=== PATIENT | female | born 1975 | race Caucasian/White ===

== ENCOUNTER 2024-06-26 10:37 | Emergency (ER) | payer OTHER, SELFPAY ==
[2024-06-26 10:50] VITALS: BP 145/92; PULSE 69; RESP 16; TEMP 36.9; O2SAT 99
--- NOTE | 2024-06-26 11:01 | EDNOTE_ITS ---
ED General RME/HPI General Chief complaint: General Adult/Misc Complain Stated complaint: R) EYE SWELLING GOING INTO FACE W/ TONGUE SWELLING Time Seen by Provider: 06/26/24 10:41 Source: patient Arrival date/time: 06/26/24 10:37 48-year-old female with no known medical history presents to the emergency room with a chief complaint of right sided facial swelling that began near the lower eye and has extended near her right lip x 1 day Mode of arrival: ambulatory Limitations: no limitations Related Data Previous Rx's ?Medication ?Instructions ?Recorded amoxicillin 875 mg-potassium 1 tab PO BID 7 days #14 t abs 06/26/24 clavulanate 125 mg tablet Allergies Allergy/AdvReac Type Severity Reaction Status Date / Time gluten Allergy Severe Headache Verified 06/26/24 10:43 Review of Systems Review of Systems Systems Reviewed: All systems reviewed, normal except as documented Constitutional Constitutional: Reports system reviewed and no additional complaints, except as documented, Denies fatigue, Denies fever(s), Denies headache(s) and Denies weakness Eyes Eyes: Reports system reviewed and no additional complaints, except as documented, Denies blurry vision, Denies change in vision and Reports itchy eyes ENT Ears, Nose, Mouth, and Throat: Reports system reviewed and no additional complaints, except as documented, Denies otalgia, Denies headache(s), Reports lip swelling, Denies nasal congestion, Denies throat swelling, Denies tongue swelling and Denies vertigo Cardiovascular Cardiovascular: Reports system reviewed and no additional complaints, except as documented, Denies chest pain, Denies dyspnea and Denies dyspnea on exertion Respiratory Respiratory: Reports system reviewed and no additional complaints, except as documented, Denies chest congestion, Denies cough, Denies dyspnea, Denies dyspnea on exertion and Denies wheezing Gastrointestinal Gastrointestinal: Reports system reviewed and no additional complaints, except as documented, Denies abdominal pain, Denies cramping, Denies nausea and Denies vomiting Genitourinary Genitourinary: Reports system reviewed and no additional complaints, except as documented Musculoskeletal Musculoskeletal: Reports system reviewed and no additional complaints, except as documented and Denies back pain Integumentary/Breasts Skin/Breast: Reports system reviewed and no additional complaints, except as documented and Denies wounds Neurologic Neurologic: Reports system reviewed and no additional complaints, except as documented, Denies confusion, Denies headache(s), Denies lack of coordination, Denies vertigo and Denies weakness Psychiatric Psychiatric: Reports system reviewed and no additional complaints, except as documented, Denies anxiety, Denies confusion, Denies depression, Denies paranoia, Denies suicidal ideation and Denies tactile hallucinations Endocrine Endocrine: Reports system reviewed and no additional complaints, except as documented and Denies fatigue Hematologic/Lymphatic Hematologic/Lymphatic: Reports system reviewed and no additional complaints, except as documented and Denies lymphadenopathy Allergic/Immunologic Allergic/Immunologic: Reports system reviewed and no additional complaints, except as documented, Reports itchy eyes, Reports lip swelling, Denies seasonal rhinorrhea, Denies throat swelling, Denies tongue swelling, Denies urticaria and Denies wheezing ED Exam General Limitations: Present no limitations General appearance: Present alert and in no apparent distress Head Head exam: Present atraumatic Expanded Head Exam Head exam physical: Present other (Facial swelling) Head image: 2 1. Facial swelling and tenderness Eye Eye exam: Present normal appearance, PERRL and EOMI ENT ENT exam: Present normal exam, normal oropharynx and mucous membranes moist Neck Neck exam: Present normal inspection, full ROM and trachea midline Chest Chest inspection: Present normal inspection and symmetric chest wall rise Respiratory Respiratory exam: Present normal lung sounds bilaterally; Absent respiratory distress, wheezes, stridor, accessory muscle use or prolonged expiratory phase Cardiovascular Cardiovascular exam: Present regular rate, normal rhythm and normal heart sounds Abdominal Exam Abdominal exam: Present soft and normal bowel sounds Extremities Exam Extremities exam: Present normal inspection and full ROM Back Exam Back exam: Present normal inspection and full ROM Neurological Exam Neurological exam: Present alert, oriented X3 and CN II-XII intact Psychiatric Psychiatric exam: Present normal affect and normal mood Skin Skin exam: Present warm, dry, intact and normal color Course Quality Measures none Orders Category Date Time Status CT facial bones wo con Stat Exams 06/26/24 12:20 Completed DiphenhydrAMINE [Benadryl] Med 06/26/24 10:51 Discontinued 25 mg PO X1 ONE Famotidine [Pepcid] Med 06/26/24 10:51 Discontinued 20 mg PO X1 ONE dexAMETHasone TAB [Decadron Tab] Med 06/26/24 10:51 Discontinued 10 mg PO X1 ONE Vital Signs Vital signs: Vital Signs Temperature 98.5 F 06/26/24 10:50 Pulse Rate 69 06/26/24 10:50 Respiratory Rate 16 06/26/24 10:50 Blood Pressure 145/92 H 06/26/24 10:50 Pulse Oximetry (%) 99 06/26/24 10:50 Oxygen Delivery Method Room Air 06/26/24 10:50 [facility] Patient data External records reviewed:: [facility] previous records Clinical information provided by:: patient Social determinants that could affect healthcare access:: none Patient has the following chronic illnesses:: No chronic illness How is presenting disease/condition affected by chronic disease/condition?: no chronic disease Evaluation data The following diagnostics were reviewed and interpreted by me:: lab results and radiology exam(s) Lab and/or radiology exams considered but not ordered:: Labs and radiology exams considered and ordered Interpretation Summary: CT facial-Findings: No soft tissue abscess Symmetrical nasopharynx oropharynx The optic globes are intact There is soft tissue swelling at and below the nasal bones extending anterior to the maxillary antra, greater on the right side No cortical bone obstruction No fracture Chronic maxillary sinusitis Impression: Soft tissue swelling at the left nasal bone density study anterior to the maxillary antra, without abscess. Medications Medications considered but not ordered:: Medication given Medication administrations:: Medication Administration History Discontinued Medications Dexamethasone (Dexamethasone 4 Mg Tablet) 10 mg PO X1 ONE Stop: 06/26/24 10:52 Last Admin: 06/26/24 11:22 Dose: 10 mg Documented By: BRITTANEY Diphenhydramine HCl (Diphenhydramine Elix 25 Mg/10 Ml Udc) 25 mg PO X1 ONE Stop: 06/26/24 10:52 Last Admin: 06/26/24 11:23 Dose: 25 mg Documented By: BRITTANEY Famotidine (Famotidine 20 Mg Tablet) 20 mg PO X1 ONE Stop: 06/26/24 10:52 Last Admin: 06/26/24 11:22 Dose: 20 mg Documented By: BRITTANEY Medication given Consultations Consultation(s) initiated? (list below): No Diagnosis Differential Diagnosis ED Complaint MDM: Allergic reaction/cellulitis/sinusitis Most likely diagnosis given after review of the tests above:: Sinusitis Admission Indicated Admission indicated?: not indicated Explain why admission is indicated or not indicated:: N/A Admission Request Was there a request for admission?: No Disposition Plan Disposition Plan: Discharge Discharge Attestation Discharge Attestation: The patient and all family members were given an opportunity to ask questions and understood the discharge instructions. Discharge instructions specifically effects, indications for sooner follow up or return to the emergency department, and the expected course of current diagnosis. Patient condition: Stable Medical Decision Making MDM Narrative MDM Narrative: 48-year-old female with no known medical history presents to the emergency room with a chief complaint of right sided facial swelling that began near the lower eye and has extended near her right lip x 1 day Differential Diagnosis Differential Diagnosis: Allergic reaction/cellulitis/sinusitis Discharge Plan Plan Patient Disposition: HOME (Self Care) Disposition Comment: Stable Prescriptions/Referrals Prescriptions/Med Rec: New amoxicillin-pot clavulanate 875-125 mg tablet 1 tab PO BID 7 Days Qty: 14 0RF Referrals: Garcia Gallo MD [Primary Care Provider] - In 1 week Problem List Clinical Impression: Sinusitis Patient/Caregiver Discharge Instructions Education Materials: ED Sinusitis (Antibiotic Treatment) Additional Instructions: Please follow-up with your primary care provider in the next [address] of your facial sinuses were completed and showed some maxillary sinusitis. Antibiotics are sent to your pharmacy please pick them up and take them as indicated. For any evidence of worsening signs or symptoms return to the emergency room immediately Print Language: Slovenian Stand Alone Forms: Tram Award Info., Patient Portal Info Letter PA/SITA Supervising Physician MAGDY/SITA Supervising Physician: Dr. BABIN
[2024-06-26] MEDS: FAMOTIDINE 20 MG TABLET PO (11:22)
[2024-06-26] MEDS: dexAMETHasone 4 MG TABLET 10 MG PO (11:22)
[2024-06-26] MEDS: DiphenhydrAMINE ELIX 25 MG/10 ML UDC PO (11:23)
--- NOTE | 2024-06-26 12:20 | XR_ITS ---
Examination: CT maxillofacial, without intravenous contrast. 2-D sagittal reconstructions. 3-D reconstructions. Date and time of exam:June 26, 2024 1234 hrs. Indications: Onset facial swelling beginning this morning CTDI: vol (mGy):6.58 DLP: (mGycm):122 Technique: Multiple axial images of maxillofacial region, 3.0 mm slice thickness. 2-D sagittal and coronal reconstructions. 3-D reconstructions. Low dose protocols were performed. One or more of the following dose reduction techniques were used; automated exposure control, adjustment of the mA and/or KV according to patient size, use of iterative reconstruction technique. Findings: No soft tissue abscess Symmetrical nasopharynx oropharynx The optic globes are intact There is soft tissue swelling at and below the nasal bones extending anterior to the maxillary antra, greater on the right side No cortical bone obstruction No fracture Chronic maxillary sinusitis Impression: Soft tissue swelling at the left nasal bone density study anterior to the maxillary antra, without abscess.
== END 2024-06-26 14:20 | disposition home or self-care (01) ==
PROVIDERS: Emergency Provider Emergency Medicine; PCP Internal Medicine
DX: J32.0 Chronic maxillary sinusitis (principal)
CPT/HCPCS: 70486; 99284; J8540; A9270